=== PATIENT | male | born 1980 | race Caucasian/White ===

== ENCOUNTER 2019-11-09 23:34 | Emergency (ER) | payer OTHER ==
[~2019-11-09] VITALS: Ht 195.6 cm; Wt 93.0 kg
[~2019-11-09 23:34] MED LIST: CIPROFLOXACIN500 M1 PO
[2019-11-09] MEDS ORDERED: NORCO 5-325 TA1 EAC1 PO (23:56)
[2019-11-10 00:59] VITALS: BP 143/92
== END 2019-11-10 01:02 | disposition home or self-care (01) ==
LOC: M.ERS 23:34
DX: S01.01XA Laceration without foreign body of scalp, initial encounter (principal); S40.011A Contusion of right shoulder, initial encounter; W10.8XXA Fall (on) (from) other stairs and steps, initial encounter; Y93.89 Activity, other specified; Y92.89 Other specified places as the place of occurrence of the external cause; Y99.8 Other external cause status

== ENCOUNTER 2019-11-20 17:41 | Emergency (ER) | payer OTHER ==
[~2019-11-20] VITALS: Ht 195.6 cm; Wt 94.3 kg
[~2019-11-20 17:41] MED LIST changes: +NORCO 5-325 TA1 EAC1 PO
[2019-11-20] MEDS ORDERED: KEFLEX500 M1 PO (18:05)
[2019-11-20 18:16] VITALS: BP 132/70
== END 2019-11-20 18:17 | disposition home or self-care (01) ==
LOC: M.ERS 17:41
DX: S01.01XD Laceration without foreign body of scalp, subsequent encounter (principal); T24.602A Corrosion of second degree of unspecified site of left lower limb, except ankle and foot, initial encounter; T24.601A Corrosion of second degree of unspecified site of right lower limb, except ankle and foot, initial encounter; L03.116 Cellulitis of left lower limb; L03.115 Cellulitis of right lower limb; T32.0 Corrosions involving less than 10% of body surface; X58.XXXD Exposure to other specified factors, subsequent encounter; Y93.89 Activity, other specified; Y92.89 Other specified places as the place of occurrence of the external cause; Y99.0 Civilian activity done for income or pay